=== PATIENT | female | born 1955 | race Caucasian/White ===

== ENCOUNTER 2016-09-01 21:03 | Emergency (ER) | payer OTHER ==
--- NOTE | 2016-09-01 21:45 | ED Physician Documentation ---
Lower Extremity Problem - HISTORIAN Historian: patient - HPI Stated Complaint: 2nd toe, L foot pain Chief Complaint: Foot Injury Additional Information: Left 3rd toe pinned 08/09. Began to have pain in the last few days, toe red. Pain much worse today. Two Aleve this afternoon. She says the toe was not red two days ago. - ROS CONST: no problems. denies: fever - PAST HX Past History: other (NIDDM) Surgeries/Procedures: other (Hammer toe, 08/09. ) Allergies/Adverse Reactions: Allergies Allergy/AdvReac Type Severity Reaction Status Date / Time Penicillins Allergy Unknown Verified 09/01/16 21:18 Home Medications: Ambulatory Orders Medication Instructions Recorded Cephalexin [Keflex] 500 mg PO Q6H #40 capsule 09/01/16 traMADol HCL [Ultram] 50 mg PO Q4H PRN #18 tablet 09/01/16 - SOCIAL HX Smoking History: non-smoker - FAMILY HX Family History: no significant history - VITAL SIGNS Vital Signs: Vital Signs Temp Pulse Resp BP Pulse Ox 98 F 78 16 139/68 98 09/01/16 21:18 09/01/16 21:18 09/01/16 21:18 09/01/16 21:18 09/01/16 21:18 - REVIEWED ASSESSMENTS Nursing Assessment Reviewed: Yes Vitals Reviewed: Yes Progress - Progress Progress: Left foot 3 views Exam: September 01, 2016. Clinical history: Left foot surgery with pain and erythema. Findings: No comparison studies are provided. Young fixation of the left 2nd metatarsal and proximal through distal phalanx is present. There is no evidence of acute osseous abnormality. No dislocation is identified. There is nonspecific soft tissue swelling. Impression: 2nd digit fixation without acute osseous abnormality. Diffuse soft tissue swelling. Electronically signed on Sep 01, 2016 10:32:32 PM B[employer] AGENT by: Meghan Michelle ED Results Lab/Radiology - Lab Results Lab Results: Lab Results 09/01/16 09/01/16 22:38 22:38 WBC 8.00 K/ul K/ul (4.00-12.00) RBC 4.36 M/ul M/ul (3.90-5.20) Hgb 11.9 g/dL L g/dL (12.0-16.0) Hct 37.6 % % (34.5-46.5) MCV 86.3 fl fl (80.0-100.0) MCH 27.3 pg L pg (28.0-34.0) MCHC 31.7 g/dL g/dL (30.0-36.0) RDW 14.1 % % (11.3-14.3) Plt Count 190 K/mm3 K/mm3 (130-400) Neut % (Auto) 63.2 % % (39.0-79.0) Lymph % (Auto) 27.9 % % (16.0-50.0) [place] % (Auto) 4.8 % % (0.0-11.0) Eos % (Auto) 2.6 % % (0.0-6.8) Baso % (Auto) 0.2 (0.0-1.5) Neut # 5.1 # k/uL # k/uL (1.4-7.7) Lymph # 2.2 # k/uL # k/uL (0.6-4.0) [place] # 0.4 # k/uL # k/uL (0.0-0.9) Eos # 0.2 # k/uL # k/uL (0.0-0.6) Baso # 0.0 # k/uL # k/uL (0.0-0.5) Reactive Lymphs % 1.3 % % (0.0-5.0) Reactive Lymphs # 0.1 # k/uL # k/uL (0.0-0.8) Sodium 143 mmol/L mmol/L (136-145) Potassium 4.5 mmol/L mmol/L (3.5-5.0) Chloride 103 mmol/L mmol/L (98-110) Carbon Dioxide 35 mmol/L H mmol/L (20-32) BUN 25 mg/dL mg/dL (10-26) Creatinine 1.1 mg/dL mg/dL (0.4-1.5) Estimated Creat Clear 115 Est GFR ( Amer) > 60 (60 - ) Est GFR (Non-Af Amer) > 60 (60 - ) Glucose 146 mg/dL H mg/dL (70-99) Calcium 9.6 mg/dL mg/dL (8.5-10.5) Total Bilirubin 0.2 mg/dL mg/dL (0.2-1.2) AST 20 U/L U/L (0-41) ALT 18 U/L U/L (0-45) Alkaline Phosphatase 97 U/L U/L (46-116) Total Protein 7.1 g/dL g/dL (6.0-8.5) Albumin 4.1 g/dL g/dL (3.0-5.5) - Orders Orders: ED Orders Category Date Time Status TOES 2 VIEWS OR MORE [RAD] Stat Exams 09/01/16 Taken BLOOD CULTURE Stat Lab 09/01/16 Ordered CBC/PLATELET/DIFF Routine Lab 09/01/16 22:38 Completed CMP [CMP] Routine Lab 09/01/16 22:38 Completed Cephalexin [Keflex] Med 09/01/16 22:41 Discontinued 500 mg PO NOW ONE Lower Extremity Problem - EXAM General Appearance: no distress Legs: bilateral: normal inspection Knees: bilateral: normal inspection Ankle: bilateral: normal inspection, no evidence of injury Foot: right foot: normal inspection, no evidence of injury, left foot: other ( Mid 2/3 3rd toe swollen and erythematous. No drainage. Surgical pin in place. Remainder of foot w/o swelling, erythema. Pulses 2+. ) Neuro/Tendon: normal motor functions EENT: eye inspection normal, ENT inspection normal RESPIRATORY: no resp distress JOINT: joints nml (except left 3rd toe, pinned) VASCULAR: no vascular compromise NEURO/PSYCH: CN's nml as tested, motor nml, sensation nml, cognition normal SKIN: warm/dry, normal color (except as above) BACK: other (movements w/o pain) Discharge Clincal Impression: Cellulitis of toe of left foot Prescriptions: Cephalexin [Keflex] 500 mg PO Q6H #40 capsule Additional Instructions: Take all the antibiotics as prescribed until they are completely gone. Follow up with orthopedics as scheduled. Home Medications: Ambulatory Orders Cephalexin [Keflex] 500 mg PO Q6H #40 capsule 09/01/16 traMADol HCL [Ultram] 50 mg PO Q4H PRN #18 tablet 09/01/16 Condition: Good Disposition: 01 HOME, SELF-CARE Decision to Admit: NO Decision Time: 23:15
[2016-09-01 22:47] LABS: BASOPHILS % 0.2 (0.0-1.5); EOSINOPHILS % 2.6 % (0.0-6.8); LYMPHOCYTES # 2.2 # k/uL (0.6-4.0); MEAN CORPUSCULAR HEMOGLOBIN 27.3 pg (28.0-34.0); MONOCYTES # 0.4 # k/uL (0.0-0.9); MONOCYTES % 4.8 % (0.0-11.0); NEUTROPHILS # 5.1 # k/uL (1.4-7.7)
[2016-09-01] MEDS: CEPHALEXIN 250 MG CAPSULE PO ONE (22:52)
[2016-09-01 22:57] LABS: eGFR (African) > 60; eGFR (Non-African) > 60
[2016-09-01] MEDS ORDERED: traMADol HCL 50 MG TABLET PO ONE (23:16)
[2016-09-01 23:25] VITALS: BP 130/68
--- NOTE | 2016-09-02 07:30 | Diagnostic Imaging Report ---
[facility] [address] [facility].[address] [address] Report Submission Date: Sep 01, 2016 10:32:32 PM CREDIT ASSOCIATE Patient Study Name: PASCUAL GRAY Date: Sep 01, 2016 10:04:35 PM CREDIT ASSOCIATE Modality Type: CR Gender: F Description: LOWER EXTREMITY : 51 Institution: [facility] Physician: MATEO BAEZ Left foot 3 views Exam: September 01, 2016. Clinical history: Left foot surgery with pain and erythema. Findings: No comparison studies are provided. Young fixation of the left 2nd metatarsal and proximal through distal phalanx is present. There is no evidence of acute osseous abnormality. No dislocation is identified. There is nonspecific soft tissue swelling. Impression: 2nd digit fixation without acute osseous abnormality. Diffuse soft tissue swelling. Electronically signed on Sep 01, 2016 10:32:32 PM CREDIT ASSOCIATE by: Meghan CRANE
== END 2016-09-01 23:24 | disposition home or self-care (01) ==
LOC: ED 21:03
DX: L03.032 Cellulitis of left toe (principal)
CPT/HCPCS: 73660; 80053; 85025; 87040; 99283

== ENCOUNTER 2018-03-23 08:04 | Outpatient (CLI) | payer OTHER | END 2018-03-23 08:06 | LOC: LAB 08:04 | PROVIDERS: ATTEND Family Medicine | DX: E11.9 Type 2 diabetes mellitus without complications (principal) | CPT/HCPCS: 36415; 83036 ==

== ENCOUNTER 2018-05-17 09:54 | Outpatient (CLI) | payer OTHER | END 2018-05-17 09:55 | LOC: RAD 09:54 | PROVIDERS: ATTEND Family Medicine | DX: Z78.0 Asymptomatic menopausal state (principal) | CPT/HCPCS: 77080 ==

== ENCOUNTER 2018-06-22 08:53 | Outpatient (CLI) | payer OTHER | END 2018-06-22 08:55 | LOC: RT 08:53 | PROVIDERS: ATTEND Family Medicine | DX: Z00.00 Encounter for general adult medical examination without abnormal findings (principal) ==

== ENCOUNTER 2018-10-12 09:36 | Outpatient (CLI) | payer OTHER ==
--- NOTE | 2018-10-13 13:27 | OP Clinic Progress Note ---
PASCUAL GRAY ADMISSION#.: [id number] : 1955 DATE OF VISIT: 10/12/2018 SUBJECTIVE: The patient is a 63-year-old female who presented today as a brand new patient for pain in the left first or great toe on the medial nail border that has been present for about a week. She denies any history of any drainage or open lesion or purulence of any kind. She is here for treatment of this at this time. This patient is a diabetic patient on paper, but she states that her blood sugars have been very good and that her A1c has been in I believe, 6- something per cent area. The patient does not admit to any fevers, chills, nausea, vomiting, shortness of breath or chest pain at this time. OBJECTIVE: Vitals: Temperature 97.3 degrees Fahrenheit, blood pressure 148/80, heart rate 80, respiration rate 18, pain 7/10 noted at the left great toe. Vascular: 2+ DP and PT pulses, left foot. Capillary refill time is less than 3 seconds to the toes of the left foot. There is very mild edema noted at the medial border of the first great toenail. There is no other edema noted. Dermatologic: There is no erythema or drainage noted, or open lesions of any kind on the left foot. There are no other skin lesions of concern noted either. There are no obvious varicose veins noted. Musculoskeletal: There is pain on palpation noted that is fairly moderate at the left medial great toe nail border along the proximal end as well. The patient has 5/5 muscle strength about the ankle and subtalar joint of the left lower extremity. There are no other gross abnormalities noted. Neurologic: Light touch sensation is intact to the toes of the left foot. ASSESSMENT AND PLAN: 1. Left hallux medial nail onychocryptosis. 2. Possible diabetes mellitus, type 2. PROCEDURE #1: Partial nail avulsion medial hallux, left (temporary). An alcohol swab was utilized to clean the left great toe and local anesthesia was then obtained with 6 mL of a 1:1 mix of 2% lidocaine plain and 0.25% Marcaine plain. The patient was found to have good anesthesia obtained with no pain upon exam. The left great toe was then cleaned with a Betadine swab appropriately and prepped for the small procedure. It should be noted that prior to any of this, the risks and benefits of the procedure were discussed with the patient for a temporary partial nail avulsion of the left medial great toenail and she agreed both by written and verbal consent to go forward with this procedure at this time. She understood the risks of bleeding, infection, etc. The patient then underwent a partial nail avulsion utilizing a hemostat and nail splitters. The nail was removed and confirmed to have been removed in its entirety on that medial border. It was flushed with a copious amount of normal saline, dried and then dressed with triple antibiotic ointment, 4x4 gauze, 2- inch Enrique and 1-inch Coban beginning on the great toe and extending onto the distal forefoot to help hold it on well. The patient was given appropriate instructions verbally and on paper regarding care for the toe. The patient tolerated the procedure well and felt good about the experience today. The patient will return to the clinic in 1 week over at the [facility] and she will call there to make that appointment for follow-up to make sure it is healing well. She is hoping that in a week and a half from now she will be healed and get back to her water jogging. The patient was told that we are hoping she will be good to go in a week and a half but we are unsure as to how quickly she will heal. I believe she should do pretty well by then to get back in the water. The patient had no further questions or concerns and is grateful for her time here and the written instructions sent home with her as well for care. Nola MorenoP.M. (Dictated/Not Signed) Igor Job#: [id number] MTDD
== END 2018-10-12 09:38 ==
LOC: POD 09:36
PROVIDERS: ATTEND Podiatrist Foot & Ankle Surgery
DX: L60.0 Ingrowing nail (principal)
CPT/HCPCS: 11730; 99203; G0463; J2001; J3490; A4554

== ENCOUNTER 2019-06-12 11:21 | Outpatient (CLI) | payer OTHER ==
[2019-06-12 11:57] LABS: BASOPHILS % 0.5 % (0.0-1.5); NEUTROPHILS # 3.6 # k/uL (1.4-7.7)
[2019-06-12 12:17] LABS: eGFR (Non-African) > 60
--- NOTE | 2019-06-12 15:13 | Diagnostic Imaging Report ---
PATIENT MR#: [id number] PATIENT PATIENT NAME: PASCUAL GRAY DATE OF : 1955 REFERRING PHYSICIAN: Libia Kimble EXAM DATE: 06/12/2019 ACCESSION NUMBER: [id number] EXAM DESCRIPTION: CT ABD PELVIS W/O CO CLINICAL HISTORY: LEFT FLANK PAIN X 1 WEEK TECHNIQUE: CT abdomen and pelvis without contrast. COMPARISON: No pertinent prior studies are available at this time. CT ABDOMEN WITHOUT CONTRAST: Lung bases: No lung base infiltrate or effusion. Liver: No intrahepatic ductal dilation. Gallbladder: Normally distended. Pancreas: No pancreatic duct dilation. Bowel loops: Nondistended. Spleen: Normal size. Adrenals: Normal size. Right kidney: No stones or hydronephrosis. Parapelvic cysts noted measuring up to 1.4 cm. Left kidney: No stones or hydronephrosis. Parapelvic cysts noted measuring up to 2.5 cm. Aorta: Normal caliber. Peritoneum: No free air. Lumbar spine: S-shaped lumbar scoliosis with advanced lumbar degenerative spondylosis. CT PELVIS WITHOUT CONTRAST: Colon: Multiple colonic diverticula without evidence of diverticulitis. Appendix: Normal appendix is seen. Bladder: Contracted, without stones. Pelvic organs: 2.5 cm right ovarian cyst. Peritoneum: No fluid. IMPRESSION: 1. No evidence of nephrolithiasis or hydronephrosis. 2. Incidental note made of bilateral renal parapelvic cysts. 3. Diverticulosis without CT evidence of diverticulitis. 4. 2.5 cm right ovarian cyst. This may be evaluated with pelvic ultrasound, if clinically indicated. 5. S-shaped lumbar scoliosis with multilevel degenerative spondylosis producing central canal and mary anne ral foraminal stenosis. Read by: Dr. Timmy Mooney Transcribed by: Timmy Mooney Transcribed Date: 06/12/2019 3:12:59 PM Electronically signed by: Dr. Timmy Mooney Date signed: 06/12/2019 3:13:21 PM
== END 2019-06-12 11:31 ==
LOC: RAD 11:21
PROVIDERS: ATTEND Family Medicine
DX: R10.84 Generalized abdominal pain (principal)
CPT/HCPCS: 36415; 74176; 80053; 84484; 85025

== ENCOUNTER 2019-06-18 08:02 | Outpatient (CLI) | payer OTHER ==
--- NOTE | 2019-06-18 21:12 | Diagnostic Imaging Report ---
PATIENT MR#: [id number] PATIENT PATIENT NAME: PASCUAL GRAY DATE OF : 1955 REFERRING PHYSICIAN: Libia Kimble EXAM DATE: 06/18/2019 ACCESSION NUMBER: [id number] EXAM DESCRIPTION: US TRANSABDOMINAL PELVIS Indication: Right ovarian cyst and back pain. Technique: Multiple grayscale and color transvaginal sonographic images of the pelvis were obtained. Comparison: CT of the abdomen and pelvis dated June 12, 2019. Findings: The uterus appears to be retroflexed. The left ovary is not visualized, possibly due to bow el gas. There is a 3.0 x 2.9 x 2.7 cm simple cyst seen in the right ovary. The right ovary measures 3.7 x 3.5 x 2.6 cm. There is vascular flow seen to the right ovary. The uterus measures 8.6 x 5.4 x 4.8 cm. There is no free fluid seen in the pelvis. There is no adnexal mass or fluid collection. The endometrium was not well visualized on this exam. Impression: Right ovarian 3.0 x 2.9 x 2.7 cm simple cyst. This is similar in appearance when compared to the rece nt CT. Retroflexed uterus with nonvisualization of the left ovary possibly due to bowel gas. Read by: Dr. Felix Mclean Transcribed by: Felix Mclean Transcribed Date: 06/18/2019 9:11:53 PM Electronically signed by: Dr. Felix Mclean Date signed: 06/18/2019 9:11:53 PM
== END 2019-06-18 08:12 ==
LOC: RAD 08:02
PROVIDERS: ATTEND Family Medicine
DX: N83.201 Unspecified ovarian cyst, right side (principal)
CPT/HCPCS: 76830

== ENCOUNTER 2019-08-01 08:49 | Outpatient (CLI) | payer OTHER ==
[2019-08-01 09:44] LABS: eGFR (Non-African) > 60
[2019-08-01 09:45] LABS: HDL 56 mg/dL (>40)
== END 2019-08-01 08:54 ==
LOC: LAB 08:49
PROVIDERS: ATTEND Family Medicine
DX: Z13.6 Encounter for screening for cardiovascular disorders (principal); E11.9 Type 2 diabetes mellitus without complications
CPT/HCPCS: 36415; 80053; 80061; 83036